=== PATIENT | female | born 1980 | race Caucasian/White ===

== ENCOUNTER 2021-08-01 19:48 | Emergency (ER) | payer OTHER ==
[~2021-08-01] VITALS: Ht 170.2 cm; Wt 65.8 kg
[2021-08-01] MEDS ORDERED: PREDNISONE 20 M20 MG PO (20:12)
[2021-08-01 20:25] VITALS: BP 163/106
== END 2021-08-01 20:25 | disposition home or self-care (01) ==
LOC: M.ERS 19:48
DX: L25.9 Unspecified contact dermatitis, unspecified cause (principal); R42 Dizziness and giddiness